=== PATIENT | male | born 1985 | race Caucasian/White ===

== ENCOUNTER 2017-04-20 20:47 | Emergency (ER) | payer OTHER ==
[~2017-04-20] VITALS: Ht 182.9 cm; Wt 94.0 kg
[2017-04-20 20:55] VITALS: BP 150/70; PULSE 101; RESP 16; TEMP 98.6; O2SAT 97
[2017-04-20] MEDS ORDERED: SODIUM CHLORIDE 0.9% FLUSH 10 ML FLUSH IV FLUSH PRN (21:15)
[2017-04-20] MEDS ORDERED: ONDANSETRON HCL 4 MG/2 ML VIAL IVP ONE (21:15)
--- NOTE | 2017-04-20 21:16 | PD ---
HPI Chief Complaint: GI Complaint Time Seen by Provider: 21:08 Travel History International Travel<30 days: No Contact w/Intl Traveler<30days: No Traveled to known affect area: No History of Present Illness HPI The patient is a 31-year-old male that has had diarrhea for the past 6 months. He states the past 6 months he has averaged 3-4 stools per day but for the past week he has had 10 stools per day. He now has some right upper and right lower abdominal pain which is a 4/10. He denies any blood in the stool but did vomit some blood. He denies any recent foreign travel, well water ingestion, recent antibiotics except clindamycin which was given to him on Sunday for a finger infection. He states that his symptoms began well before he was given clindamycin. The patient also denies any history of bowel problems, exposure to anyone with similar symptoms or fever. He denies any dysuria, frequency or urgency. He does feel dehydrated. His abdominal comfort is a 4/10 in pain which is crampy. [facility] Social History Tobacco Use: Yes Allergies-Medications (Allergen,Severity, Reaction): Coded Allergies: No Known Allergies (Unverified , 04/20/17) Reported Meds & Prescriptions Reported Meds & Active Scripts Active Phenergan (Promethazine HCl) 25 Mg Tablet 25 Mg PO Q6H PRN Reported Clindamycin (Clindamycin HCl) 150 Mg Cap 150 Mg PO Q6H Review of Systems Except as stated in HPI: all other systems reviewed are Neg Physical Exam Narrative GENERAL: The patient is alert, oriented 3, moderately dehydrated in moderate distress with his dehydration and abdominal discomfort. His vital signs show heart rate of 11 with blood pressure 150/70 but are otherwise normal. SKIN: Focused skin assessment warm/dry. HEAD: Atraumatic. Normocephalic. EYES: Pupils equal and round. No scleral icterus. No injection or drainage. ENT: No nasal bleeding or discharge. Mucous membranes pink and moist. NECK: Trachea midline. No JVD. CARDIOVASCULAR: Regular rate and rhythm. No murmur appreciated. RESPIRATORY: No accessory muscle use. Clear to auscultation. Breath sounds equal bilaterally. GASTROINTESTINAL: Abdomen soft, with tenderness to direct palpation in the bilateral lower quadrants, right greater than left and in the right upper quadrant, nondistended. Hepatic and splenic margins not palpable. No guarding or rebound is present. MUSCULOSKELETAL: No obvious deformities. No clubbing. No cyanosis. No edema. NEUROLOGICAL: Awake and alert. No obvious cranial nerve deficits. Motor grossly within normal limits. Normal speech. PSYCHIATRIC: Appropriate mood and affect; insight and judgment normal. Data Data Last Documented VS Vital Signs Date Time Temp Pulse Resp B/P (MAP) Pulse Ox O2 Delivery O2 Flow Rate FiO2 04/20/17 23:22 04/20/17 23:16 80 18 98 Room Air 04/20/17 20:55 98.6 Orders Orders Complete Blood Count With Diff (04/20/17 21:08) Comprehensive Metabolic Panel (04/20/17 21:08) Lipase (04/20/17 21:08) Urinalysis - C+S If Indicated (04/20/17 21:08) Ct Abd/Pel W Iv Contrast(Rout) (04/20/17 21:08) Iv Access Insert/Monitor (04/20/17 21:08) Ecg Monitoring (04/20/17 21:08) Oximetry (04/20/17 21:08) Ondansetron Inj (Zofran Inj) (04/20/17 21:15) Sodium Chloride 0.9% Flush (Ns Flush) (04/20/17 21:15) Sodium Chlor 0.9% 1000 Ml Inj (Ns 1000 M (04/20/17 21:30) Iohexol 350 Inj (Omnipaque 350 Inj) (04/20/17 21:31) Labs Laboratory Tests Test 04/20/17 21:15 White Blood Count 9.4 TH/MM3 Red Blood Count 4.81 MIL/MM3 Hemoglobin 15.0 GM/DL Hematocrit 44.6 % Mean Corpuscular Volume 92.6 FL Mean Corpuscular Hemoglobin 31.2 PG Mean Corpuscular Hemoglobin Concent 33.7 % Red Cell Distribution Width 12.4 % Platelet Count 265 TH/MM3 Mean Platelet Volume 7.2 FL Neutrophils (%) (Auto) 65.6 % Lymphocytes (%) (Auto) 23.6 % Monocytes (%) (Auto) 6.3 % Eosinophils (%) (Auto) 2.3 % Basophils (%) (Auto) 2.2 % Neutrophils # (Auto) 6.2 TH/MM3 Lymphocytes # (Auto) 2.2 TH/MM3 Monocytes # (Auto) 0.6 TH/MM3 Eosinophils # (Auto) 0.2 TH/MM3 Basophils # (Auto) 0.2 TH/MM3 CBC Comment DIFF FINAL Differential Comment Urine Color STRAW Urine Turbidity CLEAR Urine pH 6.0 Urine Specific [place] 1.005 Urine Protein NEG mg/dL Urine Glucose (UA) NEG mg/dL Urine Ketones NEG mg/dL Urine Occult Blood NEG Urine Nitrite NEG Urine Bilirubin NEG Urine Leukocyte Esterase NEG Urine WBC 0-2 /hpf Urine Squamous Epithelial Cells 0-5 /hpf Microscopic Urinalysis Comment CULT NOT INDICATED Blood Urea Nitrogen 13 MG/DL Creatinine 1.10 MG/DL Random Glucose 110 MG/DL Total Protein 7.7 GM/DL Albumin 3.9 GM/DL Calcium Level 9.1 MG/DL Alkaline Phosphatase 102 U/L Aspartate Amino Transf (AST/SGOT) 50 U/L Alanine Aminotransferase (ALT/SGPT) 86 U/L Total Bilirubin 0.3 MG/DL Sodium Level 138 MEQ/L Potassium Level 4.2 MEQ/L Chloride Level 103 MEQ/L Carbon Dioxide Level 27.2 MEQ/L Anion Gap 8 MEQ/L Estimat Glomerular Filtration Rate 78 ML/MIN Lipase 171 U/L [facility] Medical Decision Making Medical Screen Exam Complete: Yes Emergency Medical Condition: Yes Medical Record Reviewed: Yes Interpretation(s) The CT abdomen shows an elongated radiopaque foreign body in the cecum, possibly a small bone ingestion but is otherwise normal. The urinalysis is normal. The complete metabolic profile shows a GFR of 78, AST of 50 and ALT of 86 but is otherwise unremarkable. The lipase is normal. The CBC is normal. Differential Diagnosis Gastroenteritis, dehydration, electrolyte disorder, colitis, appendicitis, urinary tract infection, renal insufficiency, anemia Narrative Course Is now 1033 and the patient is not nauseated. He is drinking clear liquids. Scripts Promethazine (Phenergan) 25 Mg Tablet 25 MG PO Q6H Y for NAUSEA OR VOMITING, #30 TAB 0 Refills Prov: Javier Landeros MD 04/20/17 Javier Landeros MD Apr 20, 2017 21:15
[2017-04-20 21:23] LABS: AUTOMATED NEUTROPHIL # 6.2 TH/MM3 (1.8-7.7); BASOPHIL # 0.2 TH/MM3 (0-0.2); BASOPHIL % 2.2 % (0.0-2.0); EOSINOPHIL # 0.2 TH/MM3 (0-0.4); EOSINOPHIL % 2.3 % (0.0-4.0); HEMATOCRIT 44.6 % (39.0-51.0); HEMO FLAGS DIFF FINAL; LYMPH % 23.6 % (9.0-44.0); LYMPHOCYTE # 2.2 TH/MM3 (1.0-4.8); MEAN CELL VOLUME 92.6 FL (80.0-100.0); MEAN CORPUSCULAR HEMOGLOBIN 31.2 PG (27.0-34.0); MEAN CORPUSCULAR HGB CONC 33.7 % (32.0-36.0); MONO % 6.3 % (0.0-8.0); NEUT % 65.6 % (16.0-70.0); PLATELET COUNT 265 TH/MM3 (150-450); RED BLOOD COUNT 4.81 MIL/MM3 (4.50-5.90); RED CELL DISTRIBUTION WIDTH 12.4 % (11.6-17.2); WHITE BLOOD COUNT 9.4 TH/MM3 (4.0-11.0)
[2017-04-20 21:24] LABS: BLOOD, URINE NEG (NEG); GLUCOSE,URINE NEG (NEG); KETONE, URINE NEG (NEG); NITRITE,URINE NEG (NEG)
[2017-04-20 21:27] VITALS: BP 150/70; PULSE 94; RESP 20; O2SAT 98
[2017-04-20 21:29] LABS: URINE COLOR STRAW (YELLW/STRAW); WBC, URINE 0-2 /hpf (0-5)
[2017-04-20 21:30] LABS: COMMENT (UR) CULT NOT INDICATED; CULTURE IF INDICATED CULT NOT INDICATED; SQUAMOUS EPITHELIAL CELL URINE 0-5 /hpf (0-5)
[2017-04-20 21:31] LABS: CHLORIDE 103 MEQ/L (98-107); POTASSIUM 4.2 MEQ/L (3.5-5.1); SODIUM (NA) 138 MEQ/L (136-145)
[2017-04-20] MEDS ORDERED: IOHEXOL 350 MG/ML 10 ML VIAL (for RAD DIAG) IVCONTRAST ONE (21:31)
[2017-04-20 21:35] LABS: ANION GAP 8 MEQ/L (5-15); BICARBONATE 27.2 MEQ/L (21.0-32.0); BLOOD UREA NITROGEN 13 MG/DL (7-18)
[2017-04-20 21:38] LABS: ALT (GPT) 86 U/L (12-78); AST (GOT) 50 U/L (15-37); GLOMERULAR FILTRATION RATE 78 ML/MIN (>89)
[2017-04-20 21:39] LABS: TOTAL BILIRUBIN ADULT 0.3 MG/DL (0.2-1.0)
[2017-04-20] MEDS ORDERED: CLIN1CAP5 PO (21:39)
[2017-04-20 21:41] LABS: ALKALINE PHOSPHATASE 102 U/L (45-117)
[2017-04-20] MEDS: SODIUM CHLOR 0.9% 1000 ML INJ 1,000 ML IV SCH ×2 (21:44→22:00)
--- NOTE | 2017-04-20 22:01 | RADRPT ---
EXAM DATE/TIME: 04/20/2017 21:26 [place] COMPARISON: No previous studies available for comparison. INDICATIONS : Diarrhea for the past 6 months. Increased frequency this week. Hemoptysis X 2 today. IV CONTRAST: 97 cc Omnipaque 350 (iohexol) IV ORAL CONTRAST: No oral contrast ingested. RADIATION DOSE: 8.70 CTDIvol (mGy) MEDICAL HISTORY : None SURGICAL HISTORY : None. ENCOUNTER: Initial ACUITY: 4 - 6 months PAIN SCALE: 4/10 LOCATION: Right lateral abdomen TECHNIQUE: Volumetric scanning of the abdomen and pelvis was performed. Using automated exposure control and ad justment of the mA and/or kV according to patient size, radiation dose was kept as low as reasonably achievable to obtain optimal diagnostic quality images. DICOM format image data is available electro nically for review and comparison. FINDINGS: LOWER LUNGS: The visualized lower lungs are clear. LIVER: Homogeneous density without lesion. There is no dilation of the biliary tree. No calcified gallston es. SPLEEN: Normal size without lesion. PANCREAS: Within normal limits. KIDNEYS: Normal in size and shape. There is no mass, stone or hydronephrosis. ADRENAL GLANDS: Within normal limits. VASCULAR: There is no aortic aneurysm. BOWEL/MESENTERY: No obstruction or inflammatory changes are seen. 2 mm diameter, 16mm long radiopaque structure seen i n the cecum ABDOMINAL WALL: Within normal limits. RETROPERITONEUM: There is no lymphadenopathy. BLADDER: No wall thickening or mass. REPRODUCTIVE: Within normal limits. INGUINAL: There is no lymphadenopathy or hernia. MUSCULOSKELETAL: Within normal limits for patient age. CONCLUSION: There is an elongated radiopaque foreign body in the cecum, possibly ingested foreign body such as a small bone. Surgical clip from previous appendectomy would be conceivable but the patient does not re port prior surgery. No obstruction or inflammatory change. Otherwise normal CT of the abdomen and pel vis. Jordon Hawthorne MD on April 20, 2017 at 21:56 Board Certified Radiologist. This report was verified electronically.
[2017-04-20 22:15] VITALS: BP 131/63; PULSE 76; RESP 18; O2SAT 96
[2017-04-20] MEDS ORDERED: PROM25TA10 PO (22:33)
[2017-04-20 23:16] VITALS: BP 124/59; PULSE 80; RESP 18; O2SAT 98
== END 2017-04-20 23:24 | disposition home or self-care (01) ==
LOC: PHED 20:47
DX: R19.7 Diarrhea, unspecified (principal); R10.31 Right lower quadrant pain
CPT/HCPCS: 74177; 80053; 81001; 83690; 85025; 96361; 96374; 99285; J2405; J7030; Q9967